=== PATIENT | male | born 1965 | race Caucasian/White ===

== ENCOUNTER → 2018-02-08 | Outpatient (CLI) | payer SELFPAY ==
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
== END ==
LOC: CT 10:14
PROVIDERS: ATTEND Family Medicine
DX: M54.6 Pain in thoracic spine (principal); R07.81 Pleurodynia
CPT/HCPCS: 71250; 72128

== ENCOUNTER → 2018-02-14 | Outpatient (CLI) | payer BC ==
[~2018-02-14] MED LIST: IOPAMIDOL 370 MG/ML 200 ML INFUS..BTL INJ ONE; SODIUM CHLORIDE 0.9% 50ML 50 ML ONE
[2018-02-14 11:46] LABS: BLOOD UREA NITROGEN 17 mg/dL (7-26); BUN/CREATININE RATIO 18 (6-25); CREATININE, SERUM 0.95 mg/dL (0.72-1.25); EST GLOMERULAR FILTRATION RATE > 60 ML/MIN (60-)
--- NOTE | 2018-02-14 15:34 | Diagnostic Imaging Report ---
EXAM: CT Abdomen WITH contrast INDICATION: Query hepatic mass COMPARISON: None. TECHNIQUE: Abdomen was scanned utilizing a multidetector helical scanner from the lung base to the iliac crests after administration of IV contrast. Coronal and sagittal reformations were obtained. Liver protocol with non-contrast, arterial phase and delayed images performed. IV CONTRAST: 100 mL of Isovue 370. ORAL CONTRAST: Water COMPLICATIONS: None RADIATION DOSE: Total DLP: 2157.9 mGy*cm CTDIvol has been reviewed. It is below the limits set by the Radiation Protocol Committee (RPC). FINDINGS: LINES and TUBES: None. LOWER THORAX: Unremarkable HEPATOBILIARY: Diffuse fatty liver. There is a 2.2 cm segment 4 hyperdense lesion (36 HU on series 71, image 31) on non-contrast images and maintains hyperdense appearance on arterial and delayed images. No biliary ductal dilation. GALLBLADDER: No radio-opaque stones or sludge. No wall thickening. SPLEEN: No splenomegaly. PANCREAS: No focal masses or ductal dilatation. ADRENALS: No adrenal nodules KIDNEYS/URETERS: Kidneys enhance symmetrically. No evidence of hydronephrosis, solid mass, or stone. Right renal hypodense lesion (<10 HU) consistent with cyst. GI TRACT: No evidence of wall thickening or distension. LYMPH NODES: No lymphadenopathy. VESSELS: Unremarkable. PERITONEUM / RETROPERITONEUM: No free air or fluid. BONES AND SOFT TISSUES: Degenerative changes of the visualized spine without displaced fracture. CONCLUSION: Hyperdense right hepatic lobe lesion on non-contrast images, with persistent hyperdensity on arterial and delayed images. This likely represents a hemorrhagic cyst rather than metastasis in the absence of known primary malignancy. A follow-up liver MRI is recommended in 3 months for further evaluation. Diffuse fatty liver. Signed by: Dr. Samuel Cerrato MD on 02/14/2018 3:30 PM
== END ==
LOC: CT 10:47
PROVIDERS: ATTEND Family Medicine Sports Medicine
DX: R16.0 Hepatomegaly, not elsewhere classified (principal)
CPT/HCPCS: 36415; 74170; 82565; 84520; Q9967